=== PATIENT | male | born 1990 | race Caucasian/White ===

== ENCOUNTER 2021-10-16 11:22 | Emergency (ER) | payer OTHER, BC ==
[2021-10-16 11:33] VITALS: BP 92/65; PULSE 61
== END 2021-10-16 12:12 | disposition home or self-care (01) ==
LOC: LL.ED 11:22
DX: S61.412A Laceration without foreign body of left hand, initial encounter (principal); Z88.0 Allergy status to penicillin; W26.8XXA Contact with other sharp object(s), not elsewhere classified, initial encounter
CPT/HCPCS: 12001; 99282